=== PATIENT | male | born 1980 | race Caucasian/White ===

== ENCOUNTER 2022-11-14 02:49 | Observation (INO) ==
[2022-11-14] MEDS ORDERED: methylPREDNISolone SOD SUCC 125 MG/2 ML VIAL IV ONE (03:01)
[2022-11-14] MEDS ORDERED: diphenhydrAMINE 50 MG/ML VIAL IV ONE (03:01)
[2022-11-14] MEDS ORDERED: EPINEPHrine 1 MG/ML AMPUL IM ONE (03:04)
[2022-11-14] MEDS ORDERED: 0.9 % SODIUM CHLORIDE 1,000 ML IV ONE (04:44)
--- NOTE | 2022-11-14 04:45 | Emergency Department Note ---
Allergic Reaction HPI General Chief complaint: Skin/Abscess/Rash Stated complaint: Left upper swelling, no injury, no infection Time Seen by Provider: 11/14/22 02:57 Source: patient Mode of arrival: ambulatory Limitations: no limitations History of Present Illness HPI Narrative: Narrative: Patient presents ED with complaints of upper lip swelling that he noticed just prior to arrival to the ED. States he was sleeping he woke up the left side of his left upper lip was swollen. He denies any difficulty breathing, throat swelling, tongue swelling, trauma to the tongue, known allergen. He states that this has happened in the past before. He is also had given areas of his body swell up like his forearm a few months ago. He does not know what causes this. He states normally Benadryl helps. He did take 25 mg oral Benadryl prior to coming in. Patient denies any other alleviating or aggravating factors. Related Data Previous Rx's Medication Instructions Recorded methylphenidate HCl 36 mg 36 mg PO QAM #28 tabs 10/19/22 tablet,extended release 24 hr Allergies Allergy/AdvReac Type Severity Reaction Status Date / Time Penicillins Allergy Severe Wheezing Verified 11/14/22 02:55 Review of Systems ROS ROS Narrative: Narrative: All systems ED: reviewed and negative except as stated. [facility] Narrative Patient History Narrative: Narrative: Medical/Surgical/Family History All Active Problems (Updated 11/14/22 @ 07:51 by Maurice Jay DO) Angioedema of lips (Acute) Encounter for examination required by Department of Transportation (DOT) (Acute) Itch of skin (Acute) Refused influenza vaccine (Acute) Anxiety (Chronic) Daytime sleepiness (Chronic) History of surgery (Chronic) PTSD (post-traumatic stress disorder) (Chronic) Panic disorder without agoraphobia (Chronic) Major depressive disorder, recurrent, moderate (Chronic) Chronic neck pain (Acute) Influenza B (Acute) Spasmodic torticollis (Acute) 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 (Acute) Pharyngitis (Acute) Allergic reaction (Acute) Hernia, umbilical (Acute) Incarcerated ventral hernia (Acute) Rectal bleeding (Acute) Folliculitis (Acute) Elevated PSA, less than 10 ng/ml (Acute) Left forearm pain (Acute) Family history of prostate cancer (Acute) Acute pain of left wrist (Acute) Medical History Acid reflux Acute dermatitis Anxiety Discussed counseling Back pain Costochondritis Daytime sleepiness Dental abscess 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 Fracture of tooth Head ache Hypertension, essential Diet controlled Hypothyroidism Joint pain Major depressive disorder, recurrent, moderate Migraine Muscle spasm of back left paraspinous muscles of the thoracic spine Muscle spasms of head and/or neck Panic disorder without agoraphobia PTSD (post-traumatic stress disorder) Sinusitis Tinnitus, bilateral URI (upper respiratory infection) Surgical History History of surgery 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21 History of ventral hernia repair 01/16/2022 Family History Grandmother Arthritis Maternal Son Neuroblastoma Thyroid disease Sister Migraines Social History Smoking Status: Never smoker Alcohol Intake Frequency: holiday/special occasion only Substance Use: former substance user and marijuana Exam Narrative Narrative: Narrative: General Limitations: no limitations General appearance: Absent in distress Eye Eye: Present PERRL and EOMI ENT ENT: Present TM's normal bilaterally Expanded ENT Mouth: Present lip swelling; Absent drooling or tounge swelling Throat: Absent tonsillar erythema or tonsillar exudate Respiratory Respiratory: Present normal lung sounds bilaterally; Absent respiratory distress, wheezes or stridor Cardiovascular Cardiovascular: Present regular rate and normal rhythm Extremities Extremities: Present normal inspection and normal capillary refill Neurological Neurological: Present oriented X3 and normal gait Psychiatric Psychiatric: Present normal affect and normal mood Skin Skin: Present warm (WNL) and intact Course Course Course Narrative: Patient was evaluated for lip swelling. Patient had obvious swelling to the left side of his lip. Patient had no respiratory distress and was breathing company on room air. Physical exam showed he had patent airway. Patient was given IV Benadryl, steroids and IM epinephrine. He was monitored for 2 hours in the ED and reevaluated. Upon reevaluation his upper lip swelling had worsened to include the right side of his lip. At this point would be prudent to admit the patient since his swelling has actually gotten worse. Unfortunately we did not immediately have any beds available so we held patient in the ED. Upon reevaluation of the patient's upper lip has gone down a little and has not worsened but not enough to where I feel comfortable sending him home. Plan of care discussion with had with patient who agrees with being admitted to the hospital for observation. case discussed with hospitalist who has agreed to admit the patient Reevaluation(s) Reevaluation #1: Patient remains hemodynamically stable. The swelling of the lips has worsened to include the right side of his upper lip. Airway still patent at this time. Time: 03:31 Consultations Consultation #1: Case was discussed with hospitalist who has agreed to admit the patient for angioedema. Time: 08:15 Vital Signs Vital signs: Vital Signs Temperature 98.0 F 11/14/22 02:51 Pulse Rate 60 11/14/22 02:51 Respiratory Rate 22 11/14/22 02:51 Blood Pressure 135/85 11/14/22 02:51 Pulse Oximetry (%) 98 11/14/22 02:51 Oxygen Delivery Method 11/14/22 02:51 Temperature 98.0 F 11/14/22 02:51 Pulse Rate 65 11/14/22 08:16 Respiratory Rate 18 11/14/22 08:16 Blood Pressure 109/72 11/14/22 08:16 Pulse Oximetry (%) 96 11/14/22 08:16 Oxygen Delivery Method 11/14/22 06:15 MDM MDM Narrative Medical decision making narrative: Narrative: Differential Diagnosis Differential Diagnosis: Allergic reaction, angioedema Medical Records Medical records reviewed: Yes I reviewed the patient's medical records. Lab Data Result diagrams: 11/14/22 05:02 Labs: Lab Results 11/14/22 11/14/22 Range/Units 05:02 05:02 WBC 5.7 (4.5-11.0) K/mcL RBC 4.89 (4.63-6.08) M/mcL Hgb 14.1 (13.7-17.5) g/dL Hct 42.6 (40.1-51.0) % POC Hct 43.0 (41-55) MCV 87.1 (80.0-100.0) fL MCH 28.8 (26.0-34.0) pg MCHC 33.1 (31.0-36.0) g/dL RDW 13.1 (11.5-14.5) % Plt Count 247 (140-440) K/mcL MPV 9.1 (8.8-12.5) fL Immature Gran % (Auto) 0.2 (0.0-0.5) % Neut % (Auto) 44.9 (38.0-78.0) % Lymph % (Auto) 36.3 (15.5-49.0) % [place] % (Auto) 11.9 (1.0-12.0) % Eos % (Auto) 6.2 (0.0-7.0) % Baso % (Auto) 0.5 (0.0-2.0) % Lymph # (Auto) 2.05 (1.50-4.80) K/mcL [place] # (Auto) 0.67 (0.10-0.90) K/mcL Eos # (Auto) 0.35 (0.00-0.70) K/mcL Baso # (Auto) 0.03 (0.00-0.30) K/mcL Immature Gran # 0.01 (0.00-0.05) K/mcl Absolute Neutrophils 2.54 (1.80-8.00) K/mcL POC Sodium 141 (133-145) POC Potassium 3.7 (3.3-5.1) POC Chloride 104 (96-108) POC Total CO2 27.0 (22-30) POC BUN 15 (6-20) POC Creatinine 0.7 (0.6-1.2) POC Glucose 94 (70-105) POC WB Ioniz Calcium 1.15 L (1.16-1.32) Core Measures AMI Core Measures Followed: Yes Discharge Plan Patient/Caregiver Discharge Instructions Pt seen by CHILD DEVELOPMENT ASSISTANT/PA only: No Clinical Impression: Angioedema of lips Patient Disposition: Xfer As Outpt/Obs ([facility]) Condition: Good Follow up with: Daryn Diallo PA-C [Primary Care Provider] - Prescriptions: No Action methylphenidate HCl 36 mg tablet extended release 24hr 36 mg PO QAM Qty: 28 0RF
[2022-11-14 05:07] LABS: POC Calcium, Ionized 1.15 (1.16-1.32); POC Creatinine 0.7 (0.6-1.2); POC Potassium 3.7 (3.3-5.1)
[2022-11-14 05:39] LABS: Basophils # (Auto) 0.03 K/mcL (0.00-0.30); Basophils % (Auto) 0.5 % (0.0-2.0); Eosinophils # (Auto) 0.35 K/mcL (0.00-0.70); Eosinophils % (Auto) 6.2 % (0.0-7.0); Hematocrit 42.6 % (40.1-51.0); Hemoglobin 14.1 g/dL (13.7-17.5); Lymphocytes # (Auto) 2.05 K/mcL (1.50-4.80); Lymphocytes % (Auto) 36.3 % (15.5-49.0); Mean Cell Volume 87.1 fL (80.0-100.0); Mean Corpuscular HGB Conc 33.1 g/dL (31.0-36.0); Mean Platelet Volume 9.1 fL (8.8-12.5); Monocytes # (Auto) 0.67 K/mcL (0.10-0.90); Monocytes % (Auto) 11.9 % (1.0-12.0); Neutrophils % (Auto) 44.9 % (38.0-78.0); Platelet Count 247 K/mcL (140-440); RBC 4.89 M/mcL (4.63-6.08); Red Cell Distribution Width 13.1 % (11.5-14.5); WBC 5.7 K/mcL (4.5-11.0)
--- NOTE | 2022-11-14 08:20 | Internal Med History&Physical ---
HPI History of Present Illness Patient information: Note initiated : 11/14/22 at 8:18 am Service Date, if different from initiated Date: [] Patient: Rich Albright 42 y/o M admitted on for Left upper swelling, no injury, no infection. Chief Complaint: [] History of present illness: Mr. Albright is a 42 year old male with a history of unexplained intermittent upper airway swelling associated with swelling of his hands and feet that spont aneously resolve who presented to the ED with concerns of lip swelling. The patient says that the symptoms occur at least a few times a year and started in adulthood. He says they usually resolve without incident however he does sometimes feel like his upper airway is swollen. He says the current episode is the worst she has ever experienced which is why he decided to come to the emergency department. In the emergency department, the patient is not in any respiratory distress. The most prominent finding is upper left lip edema. He says that he does feel a little bit of edema in his pharynx however does not have any difficulty with breathing. The patient says that he also had some swelling in his feet that has resolved. The patient denies recent illnesses, no triggers identified, no family history of similar symptoms. The patient says that his only known allergy is to penicillin. Review of systems Constitutional: no fever, fatigue, or weight loss Eyes: no vision changes or pain Cardiovascular: no chest pain, no palpitations Respiratory: Upper lip swelling, mild pharynx swelling. Gastrointestinal: no abdominal pain, no nausea, vomiting, or diarrhea Genitourinary: no dysuria or difficulty voiding Musculoskeletal: no arthralgia or myalgia Integumentary: no skin lesion or wound Neurological: no focal weakness or numbness Psychiatric: Positive for anxiety Physical exam Head: Atraumatic, normal inspection. Eyes: normal appearance, no scleral icterus. Neck: full ROM Respiratory: Upper lip swelling most prominent on left lip, no pharyngeal edema noted. Cardiovascular: normal rate and rhythm, S1, S2. GI/Abdominal: soft, nontender, no guarding. Extremities: full range of motion, nontender. Neurological: CN II-XII intact, intact motor, intact sensation. Psychiatric: normal mood. Skin: warm, normal color PFSH PFSH All Active Problems (Updated 11/14/22 @ 07:51 by Maurice Jay DO) Angioedema of lips (Acute) Encounter for examination required by Department of Transportation (DOT) (Acute) Itch of skin (Acute) Refused influenza vaccine (Acute) Anxiety (Chronic) Daytime sleepiness (Chronic) History of surgery (Chronic) PTSD (post-traumatic stress disorder) (Chronic) Panic disorder without agoraphobia (Chronic) Major depressive disorder, recurrent, moderate (Chronic) Chronic neck pain (Acute) Influenza B (Acute) Spasmodic torticollis (Acute) 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 (Acute) Pharyngitis (Acute) Allergic reaction (Acute) Hernia, umbilical (Acute) Incarcerated ventral hernia (Acute) Rectal bleeding (Acute) Folliculitis (Acute) Elevated PSA, less than 10 ng/ml (Acute) Left forearm pain (Acute) Family history of prostate cancer (Acute) Acute pain of left wrist (Acute) Medical History Acid reflux Acute dermatitis Anxiety Discussed counseling Back pain Costochondritis Daytime sleepiness Dental abscess 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 Fracture of tooth Head ache Hypertension, essential Diet controlled Hypothyroidism Joint pain Major depressive disorder, recurrent, moderate Migraine Muscle spasm of back left paraspinous muscles of the thoracic spine Muscle spasms of head and/or neck Panic disorder without agoraphobia PTSD (post-traumatic stress disorder) Sinusitis Tinnitus, bilateral URI (upper respiratory infection) Surgical History History of surgery 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21 History of ventral hernia repair 01/16/2022 Family History Grandmother Arthritis Maternal Son Neuroblastoma Thyroid disease Sister Migraines Social History household members: significant other housing: house marital status: education level: middle school service: No occupational status: 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 smoking status: Never smoker alcohol intake frequency: holiday/special occasion only substance use type: former substance user and marijuana teri/hinduism: Moravian seatbelt use: always MEDS/ALLERGIES Home Medications and Allergies Home Medications Medication Instructions Recorded Confirmed Type methylphenidate HCl 36 mg 36 mg PO QAM #28 tabs 10/19/22 11/10/22 Rx tablet,extended release 24 hr Allergies Allergy/AdvReac Type Severity Reaction Status Date / Time Penicillins Allergy Severe Wheezing Verified 11/14/22 02:55 EXAM Constitutional Vitals: Temp Pulse Resp BP Pulse Ox O2 Del Method 98.0 F 65 13 113/76 96 11/14/22 02:51 11/14/22 07:31 11/14/22 07:31 11/14/22 07:31 11/14/22 07:31 11/14/22 06:15 DATA Data Completed and Pending Labs: Labs from last 24 hours 11/14/22 11/14/22 05:02 05:02 WBC 5.7 RBC 4.89 Hgb 14.1 Hct 42.6 POC Hct 43.0 MCV 87.1 MCH 28.8 MCHC 33.1 RDW 13.1 Plt Count 247 MPV 9.1 Immature Gran % (Auto) 0.2 Neut % (Auto) 44.9 Lymph % (Auto) 36.3 [place] % (Auto) 11.9 Eos % (Auto) 6.2 Baso % (Auto) 0.5 Lymph # (Auto) 2.05 [place] # (Auto) 0.67 Eos # (Auto) 0.35 Baso # (Auto) 0.03 Immature Gran # 0.01 Absolute Neutrophils 2.54 POC Sodium 141 POC Potassium 3.7 POC Chloride 104 POC Total CO2 27.0 POC BUN 15 POC Creatinine 0.7 POC Glucose 94 POC WB Ioniz Calcium 1.15 L A/P Narrative A/P Narrative: Assessment: 42 year old male with a history of prior episodes of unexplained and self limited edema admitted for observation of lip swelling concerning for angioedema. There was no response to Solu-Medrol, epinephrine and Benadryl in the emergency department. The patient may have bradykinin mediated angioedema, possibly hereditary or acquired angioedema. #Probable hereditary versus acquired angioedema Plan -Currently symptoms are limited to lips, no signs of airway involvement. -Received Solumedrol, Epinephrine, and Benadryl in the ED however no significant benefit noted. -If edema progresses will give fresh frozen plasma. -Check C4 level and CRP. -Monitor respiratory status, low threshold for intubation if upper airway edema progresses. -Consider referral to associate chief nurse or draw frame runner at discharge. Time Spent With Patient Time: Total time spent is greater than 50% in coordination of care (as documented) at patient's floor/unit and/or counseling patient:
[2022-11-14] MEDS ORDERED: DOCUSATE SODIUM 100 MG CAPSULE PO SCH (09:08)
[2022-11-14] MEDS ORDERED: ACETAMINOPHEN 325 MG TABLET PO PRN (09:08)
[2022-11-14] MEDS ORDERED: ONDANSETRON 4 MG/2 ML VIAL IV PRN (09:08)
[2022-11-14 09:40] LABS: C-Reactive Protein < 0.30 mg/dL (0.03-0.80)
--- NOTE | 2022-11-14 13:26 | Discharge Summary ---
Discharge Provider Provider IMPORTANT FOLLOW-UP INFORMATION FOR PCP: Patient information: Note initiated : 11/14/22 at 1:26 pm Service Date, if different from initiated Date: [] Patient: Rich Alrbight 42 y/o M admitted on 11/14/22 for Left upper swelling, no injury, no infection. Chief Complaint: [] Date of admission: 11/14/22 09:04 Discharge date: 11/14/22 Primary care physician: Daryn Diallo PA-C Consults: 11/14/22 Consult to Physician [CONS] Stat Comment: Consulting Provider: Cory Pierce Reason For Exam: Physician to Consult COURSE Hospital Course Hospital course: Mr. Albright is a 42 year old male with a history of unexplained intermittent upper airway swelling associated with swelling of his hands and feet that spontaneously resolve who presented to the ED with concerns of lip swelling. The patient says that the symptoms occur at least a few times a year and started in adulthood. He says they usually resolve without incident however he does sometimes feel like his upper airway is swollen. He says the current episode is the worst she has ever experienced which is why he decided to come to the emergency department. In the emergency department, the patient is not in any respiratory distress. The most prominent finding is upper left lip edema. He says that he does feel a little bit of edema in his pharynx however does not have any difficulty with breathing. The patient says that he also had some swelling in his feet that has resolved. The patient denies recent illnesses, no triggers identified, no family history of similar symptoms. CRP and C4 levels were normal. The patient was admitted for observation until the edema began to subside then discharged to home. Consider referral to an slots manager or hematologists. Physical exam Head: Atraumatic, normal inspection. Eyes: normal appearance, no scleral icterus. Neck: full ROM Respiratory: Upper lip swelling most prominent on left lip, no pharyngeal edema noted. Cardiovascular: normal rate and rhythm, S1, S2. GI/Abdominal: soft, nontender, no guarding. Extremities: full range of motion, nontender. Neurological: CN II-XII intact, intact motor, intact sensation. Psychiatric: normal mood. Skin: warm, normal color Discharge diagnosis: Angioedema Time Spent with Patient Time attestation: Total time spent providing and/or coordinating discharge services: Time spent: Less than 30 minutes EXAM Constitutional Vitals: Temp Pulse Resp BP Pulse Ox O2 Del Method 98.1 F 72 16 122/75 97 11/14/22 11:28 11/14/22 11:28 11/14/22 11:28 11/14/22 11:28 11/14/22 11:28 11/14/22 11:28 Discharge Data Data Completed and Pending Labs on day of discharge: Labs from last 24 hours 11/14/22 11/14/22 11/14/22 05:02 05:02 05:02 WBC 5.7 RBC 4.89 Hgb 14.1 Hct 42.6 POC Hct 43.0 MCV 87.1 MCH 28.8 MCHC 33.1 RDW 13.1 Plt Count 247 MPV 9.1 Immature Gran % (Auto) 0.2 Neut % (Auto) 44.9 Lymph % (Auto) 36.3 [place] % (Auto) 11.9 Eos % (Auto) 6.2 Baso % (Auto) 0.5 Lymph # (Auto) 2.05 [place] # (Auto) 0.67 Eos # (Auto) 0.35 Baso # (Auto) 0.03 Immature Gran # 0.01 Absolute Neutrophils 2.54 POC Sodium 141 POC Potassium 3.7 POC Chloride 104 POC Total CO2 27.0 POC BUN 15 POC Creatinine 0.7 POC Glucose 94 POC WB Ioniz Calcium 1.15 L C-Reactive Protein Complement C4 22.7 11/14/22 05:01 WBC RBC Hgb Hct POC Hct MCV MCH MCHC RDW Plt Count MPV Immature Gran % (Auto) Neut % (Auto) Lymph % (Auto) [place] % (Auto) Eos % (Auto) Baso % (Auto) Lymph # (Auto) [place] # (Auto) Eos # (Auto) Baso # (Auto) Immature Gran # Absolute Neutrophils POC Sodium POC Potassium POC Chloride POC Total CO2 POC BUN POC Creatinine POC Glucose POC WB Ioniz Calcium C-Reactive Protein < 0.30 Complement C4 Discharge Plan Patient/Caregiver Discharge Instructions Activity: increase activity as tolerated Prescriptions: Continued methylphenidate HCl 36 mg tablet extended release 24hr 36 mg PO QAM Qty: 28 0RF Follow Up Plan Follow up with: Daryn Diallo PA-C [Primary Care Provider] - Patient Disposition: Home, Self-Care Prognosis: Good Overall status at discharge: patient is progressing back to baseline Discharge Orders: Discharge Order (Routine); Ordered 11/14/22 Ordered By: Cory BAL VTE Deep Vein Thrombosis/Pulmonary Embolism Present on Admission: No
[2022-11-14] MEDS ORDERED: 0.9 % SODIUM CHLORIDE 10 ML SYRINGE IV SCH (14:00)
[2022-11-14] MEDS ORDERED: SENNOSIDES 1 TABLET PO SCH (21:00)
== END 2022-11-14 14:00 | disposition home or self-care (01) ==
LOC: ED 02:49 → MEDSUR 02:49
PROVIDERS: ADMIT Internal Medicine; ATTEND Internal Medicine